=== PATIENT | female | born 1975 | race Caucasian/White ===

== ENCOUNTER 2017-01-16 19:58 | Emergency (ER) | payer BC, OTHER ==
[~2017-01-16] VITALS: Ht 162.6 cm; Wt 108.9 kg
[~2017-01-16 19:58] MED LIST: IBP800T PO; OXYC-12 PO; PREN1TAB64 PO
--- NOTE | 2017-01-16 20:39 | ED GI ---
General Chief Complaint: Abdominal/GI Problems Stated Complaint: VAG BLEED 9 WKS PG Nursing Triage Note: PT STATES SHE IS 9 1/2 WEEKS . LAST SAW DR. HARRY 01/14. DIARRHEA SINCE LAST TUESDAY. 2-3 TIMES A DAY, USUALLY AFTER FOOD INTAKE. URINATED SPECIAL EVENT ASSISTANT TO ER, CLEAR YELLOW. TONIGHT SPECIAL EVENT ASSISTANT PT HAD DIARRHEA AND STATES STOOL WAS MIXED WITH SHU , RED BLOOD. Sepsis Screen: No Definite Risk Source of Information: Patient Exam Limitations: No Limitations History of Present Illness Time Seen By Provider: 20:20 Initial Comments Here with report of bright red blood in her stool tonight. She has had several days of diarrhea 2-3 times a day. States tonight that she had a diarrhea episode and noted blood in the stool and then when she wiped she had some bright red blood on the toilet paper with a small clot. States that it is not vaginal or urethral that it's coming from the rectum. She reports that she is 9 -1/2 weeks . Denies nausea or vomiting or abdominal pain. She denies hemorrhoids. Timing/Duration: 1/2 Hour (blood in stool), 3-4 Days Severity/Quality: Mild, Other (diarrhea) Radiation: No Radiation Activities at Onset: None Modifying Factors: Worsens With Defecating Associated Symptoms: No Back Pain, No Chest Pain, No Fever/Chills, No Fatigue, No Heartburn, No Nausea/Vomiting, No Shortness of Air, No Swelling/Mass in Abdomen, No Weakness Allergies and Home Medications Allergies Coded Allergies: No Known Drug Allergies (Unverified , 11/04/10) Home Medications Vit/Fe Fumarate/Fa 1 Each Tablet, 1 EACH PO DAILY, (Reported) Review of Systems Constitutional: see HPI EENTM: No Symptoms Reported Respiratory: No Symptoms Reported Cardiovascular: No Symptoms Reported Gastrointestinal: Diarrhea, Rectal Bleeding, Denies Vomiting Genitourinary: No Symptoms Reported Musculoskeletal: no symptoms reported All Other Systems Reviewed Negative Unless Noted: Yes Past Qatvbai-Tazjvj-Ailclf Hx Patient Social History Alcohol Use: Denies Use Recreational Drug Use: No Smoking Status: Current Everyday Smoker Type Used: Cigarettes Recent Foreign Travel: No Contact w/Someone Who Travel: No Recent Infectious Disease Expo: No Surgeries HX Surgeries: Yes Surgeries: Section Respiratory Hx Respiratory Disorders: No Cardiovascular Hx Cardiac Disorders: No Neurological Hx Neurological Disorders: No Reproductive System : Yes Hx Reproductive Disorders: No Genitourinary Hx Genitourinary Disorders: No Gastrointestinal Hx Gastrointestinal Disorders: Yes Musculoskeletal Hx Musculoskeletal Disorders: No Endocrine Hx Endocrine Disorders: No HEENT HX ENT Disorders: No Psychosocial Hx Psychiatric Problems: No Blood Transfusions Hx Blood Disorders: No Reviewed Nursing Assessment Reviewed/Agree w Nursing PMH: Yes Family Medical History Significant Family History: No Pertinent Family Hx Physical Exam Vital Signs VS - Last 72 Hours, by Label 01/16/17 20:15 Temp 97.7 Pulse 107 Resp 17 B/P (MAP) 144/94 Pulse Ox 99 O2 Delivery Room Air Capillary Refill : Less Than 3 Seconds General Appearance: WD/WN, no apparent distress HEENT: PERRL/EOMI, pharynx normal Neck: full range of motion, supple Respiratory: lungs clear, normal breath sounds Cardiovascular: regular rate, rhythm, no murmur Gastrointestinal: non tender, soft Rectal: normal exam, normal rectal tone, heme negative stool, No hemorrhoids, No mass Extremities: non-tender, normal inspection Back: normal inspection, no CVA tenderness, no vertebral tenderness Neurologic/Psychiatric: alert, oriented x 3 Skin: normal color, warm/dry Progress/Results/Core Measures Results/Orders Lab Results Laboratory Tests Test 01/16/17 20:50 Range/Units White Blood Count 9.3 4.3-11.0 10^3/uL Red Blood Count 4.40 4.35-5.85 10^6/uL Hemoglobin 14.1 11.5-16.0 G/DL Hematocrit 42 35-52 % Mean Corpuscular Volume 94 80-99 FL Mean Corpuscular Hemoglobin 32 25-34 PG Mean Corpuscular Hemoglobin Concent 34 32-36 G/DL Red Cell Distribution Width 13.5 10.0-14.5 % Platelet Count 159 130-400 10^3/uL Mean Platelet Volume 11.0 H 7.4-10.4 FL Neutrophils (%) (Auto) 65 42-75 % Lymphocytes (%) (Auto) 27 12-44 % Monocytes (%) (Auto) 6 0-12 % Eosinophils (%) (Auto) 2 0-10 % Basophils (%) (Auto) 0 0-10 % Neutrophils # (Auto) 6.1 1.8-7.8 X 10^3 Lymphocytes # (Auto) 2.5 1.0-4.0 X 10^3 Monocytes # (Auto) 0.6 0.0-1.0 X 10^3 Eosinophils # (Auto) 0.2 0.0-0.3 10^3/uL Basophils # (Auto) 0.0 0.0-0.1 10^3/uL Sodium Level 138 135-145 MMOL/L Potassium Level 3.5 L 3.6-5.0 MMOL/L Chloride Level 108 H 98-107 MMOL/L Carbon Dioxide Level 19 L 21-32 MMOL/L Anion Gap 11 5-14 MMOL/L Blood Urea Nitrogen 9 7-18 MG/DL Creatinine 0.78 0.60-1.30 MG/DL Estimat Glomerular Filtration Rate > 60 BUN/Creatinine Ratio 12 Glucose Level 140 H 70-105 MG/DL Calcium Level 9.4 8.5-10.1 MG/DL Total Bilirubin 0.2 0.1-1.0 MG/DL Aspartate Amino Transf (AST/SGOT) 12 5-34 U/L Alanine Aminotransferase (ALT/SGPT) 17 0-55 U/L Alkaline Phosphatase 67 40-136 U/L Total Protein 6.5 6.4-8.2 G/DL Albumin 3.7 3.2-4.5 G/DL My Orders Orders - STEPHANY HOLLEY MD Fecal Occult Bedside (01/16/17 20:30) Cbc With Automated Diff (01/16/17 20:30) Comprehensive Metabolic Panel (01/16/17 20:30) Vital Signs/I&O Vital Sign - Last 12Hours 01/16/17 20:15 Temp 97.7 Pulse 107 Resp 17 B/P (MAP) 144/94 Pulse Ox 99 O2 Delivery Room Air Blood Pressure Mean: 111 Progress Note : Progress Note Seen and evaluated. Rectal exam and Hemoccult stool. Hemoccult negative. We will check basic labs. Monitor patient. 2105: No further stool here. CBC normal. Discharged home with return precautions. Patient verbalize understanding instructions and agreement with plan. Departure Impression Impression: Primary Impression: Rectal bleeding Additional Impression: Diarrhea Qualified Codes: R19.7 - Diarrhea, unspecified Disposition: 01 HOME, SELF-CARE Condition: Improved Departure-Patient Inst. Decision time for Depature: 21:09 Referrals: DARREN HARRY DO (PCP) Primary Care Physician Patient Instructions: Bloody Stools, Adult (DC), Diarrhea in Adolescents and Adults Add. Discharge Instructions: All discharge instructions reviewed with patient and/or family. Voiced understanding. Drink plenty of fluids. Follow-up with Dr. Harry in the morning for recheck and further evaluation. Return for worse pain, persistent bleeding, weakness, breathing problems or other concerns as needed. Copy Copies To 1: DARREN HARRY TIMOTHY D MD January 16, 2017 20:38
[2017-01-16 20:59] LABS: BASOPHILS % (AUTO) 0 % (0-10); EOSINOPHILS # (AUTO) 0.2 10^3/uL (0.0-0.3); EOSINOPHILS % (AUTO) 2 % (0-10); LYMPHOCYTES # (AUTO) 2.5 X 10^3 (1.0-4.0); LYMPHOCYTES % (AUTO) 27 % (12-44); MEAN CORPUSCULAR HEMOGLOBIN 32 PG (25-34); MEAN CORPUSCULAR HGB CONC 34 G/DL (32-36); MEAN CORPUSCULAR VOLUME 94 FL (80-99); MONOCYTES # (AUTO) 0.6 X 10^3 (0.0-1.0); MONOCYTES % (AUTO) 6 % (0-12); NEUTROPHILS # (AUTO) 6.1 X 10^3 (1.8-7.8); NEUTROPHILS % (AUTO) 65 % (42-75); PLATELET COUNT 159 10^3/uL (130-400); RED CELL DISTRIBUTION WIDTH 13.5 % (10.0-14.5); WHITE BLOOD COUNT 9.3 10^3/uL (4.3-11.0)
[2017-01-16 21:16] LABS: ALANINE AMINOTRANSFERASE 17 U/L (0-55); ALBUMIN 3.7 G/DL (3.2-4.5); ANION GAP 11 MMOL/L (5-14); ASPARTATE AMINO TRANSFERASE 12 U/L (5-34); BILIRUBIN,TOTAL 0.2 MG/DL (0.1-1.0); BLOOD UREA NITROGEN 9 MG/DL (7-18); BUN/CREATININE RATIO 12; CALCIUM 9.4 MG/DL (8.5-10.1); CARBON DIOXIDE 19 MMOL/L (21-32); CHLORIDE 108 MMOL/L (98-107); CREATININE SERUM 0.78 MG/DL (0.60-1.30); GFR ESTIMATED > 60; GLUCOSE 140 MG/DL (70-105); POTASSIUM 3.5 MMOL/L (3.6-5.0); SODIUM 138 MMOL/L (135-145); TOTAL PROTEIN 6.5 G/DL (6.4-8.2)
[2017-01-16 21:31] VITALS: BP 144/94
== END 2017-01-16 21:28 | disposition home or self-care (01) ==
LOC: EDUNIT# 19:58 → ER 20:05
DX: O99.611 Diseases of the digestive system complicating pregnancy, first trimester (principal); R19.7 Diarrhea, unspecified; K62.5 Hemorrhage of anus and rectum; O99.331 Smoking (tobacco) complicating pregnancy, first trimester; F17.210 Nicotine dependence, cigarettes, uncomplicated; Z3A.09 9 weeks gestation of pregnancy
CPT/HCPCS: 36415; 80053; 85025; 99282

== ENCOUNTER → 2017-04-04 | Outpatient (CLI) | payer BC ==
--- NOTE | 2017-04-04 12:26 | Diagnostic Imaging Report ---
INDICATION: anatomy survey. TECHNIQUE: Multiple real-time grayscale images were obtained over the gravid uterus. COMPARISON: None FINDINGS: There is a single live intrauterine with heart rate of 144 beats per minute. The cervix is closed and measures approximately 4.8 cm in length. The fetus has a variable lie. The placenta is anterior and fundal in location and there is no previa. anatomy survey was performed and the following structures were visualized and normal: Kidneys, umbilical cord insertion, cerebellum, cisterna magna, cerebral ventricles, stomach, spine, urinary bladder. Biometrical measurements are as follows: Biparietal 5.25 cm, age 22 weeks 0 days. Head circumference 18.83 cm, age 21 weeks 1 days. Abdominal circumference 16.24 cm, age 21 weeks 3 days. Femur length 3.69 cm, age 21 weeks 6 days. Sonographic estimate age: 21 weeks 5 days. Sonographic estimated date of delivery: 08/10/2017. Estimated Weight: 428 gm (+/- 63 gm). LMP percentile: 79%. heart rate: 144 beats per minute. number: 1 of 1. IMPRESSION: 1. Visualized anatomy structures are normal. The four-chamber heart, profile and three-vessel cord were not well-visualized. Consider short-term followup imaging to further assess these structures. 2. Please see above for biometric data. Dictated by: Dictated on workstation # [id number]
== END ==
LOC: RAD 09:34
PROVIDERS: ATTEND Obstetrics & Gynecology
DX: O09.522 Supervision of elderly multigravida, second trimester (principal); Z3A.21 21 weeks gestation of pregnancy
CPT/HCPCS: 76805

== ENCOUNTER → 2017-06-07 | Outpatient (CLI) | payer BC ==
--- NOTE | 2017-06-07 17:41 | Diagnostic Imaging Report ---
INDICATION: O24.414, followup heart, umbilical arteries and profile. Followup growth. TECHNIQUE: Multiple real-time grayscale images were obtained over the gravid uterus. COMPARISON: 04/04/2017. FINDINGS: heart rate is 138 per minute. The amniotic fluid index is 14 cm. The cervix is 5.3 cm in length and is closed. position is breech. The four-chamber view, and two umbilical arteries suggestive of a three-vessel cord is demonstrated. The profile is not well seen. The placenta is anterior with low lying position, at 1.4 cm above the internal os. Biometrical measurements are as follows: Biparietal 7.95 cm, age 32 weeks 0 days. Head circumference 29.02 cm, age 32 weeks 0 days. Abdominal circumference 28.00 cm, age 32 weeks 1 days. Femur length 5.8 cm, age 30 weeks 3 days. Sonographic estimate age: 31 weeks 5 days. Sonographic estimated date of delivery: 08/04/2017. Estimated Weight: 1781 gm (+/- 260 gm). LMP percentile: 87%. heart rate: 138 beats per minute. number: 1 of 1. IMPRESSION: 1. Low-lying placenta. 2. The profile is not well seen due to position. Dictated by: Dictated on workstation # [id number]
== END ==
LOC: RAD 11:52
PROVIDERS: ATTEND Obstetrics & Gynecology
DX: O24.414 Gestational diabetes mellitus in pregnancy, insulin controlled (principal); Z3A.31 31 weeks gestation of pregnancy
CPT/HCPCS: 76816

== ENCOUNTER 2017-07-18 10:46 | Outpatient (RCR) | payer BC ==
--- NOTE | 2017-06-27 19:37 | Diagnostic Imaging Report ---
INDICATION: Low-lying placenta. TECHNIQUE: Multiple real-time grayscale images were obtained over the gravid uterus. COMPARISON: 06/07/17 FINDINGS: heart rate is 155 beats per minute. The placenta is anterior. No placenta previa. position is cephalic. Biophysical profile criteria are all met with total score of 8/8. AMRIT is 10 cm. Biometrical measurements are as follows: Biparietal 8.46 cm, age 34 weeks 1 days. Head circumference 30.94 cm, age 34 weeks 4 days. Abdominal circumference 31.10 cm, age 35 weeks 1 days. Femur length 6.59 cm, age 34 weeks 0 days. Sonographic estimate age: 34 weeks 4 days. Sonographic estimated date of delivery: 08-04-17. Estimated Weight: 2468 gm (+/- 360 gm). LMP percentile: 89%. heart rate: 155 beats per minute. number: 1 of 1. IMPRESSION: The placenta is anterior and is away from lower uterine segment. No placenta previa. Normal biophysical profile. Dictated by: Dictated on workstation # [id number]
[2017-08-03] MEDS ORDERED: PNV1TABL81 PO (09:41)
[2017-08-03] MEDS ORDERED: METF1000 PO (09:41)
[2017-08-11] MEDS ORDERED: DOCU100C37 PO (10:52)
[2017-08-11] MEDS ORDERED: Hydrocodone Bit/Acetaminophen PO (10:52)
[2017-08-11] MEDS ORDERED: IBUP-1773 PO (10:52)
== END 2017-09-25 | disposition home or self-care (01) ==
LOC: RAD 10:46
PROVIDERS: ATTEND Obstetrics & Gynecology
DX: O44.43 Low lying placenta NOS or without hemorrhage, third trimester (principal); O09.523 Supervision of elderly multigravida, third trimester; O24.414 Gestational diabetes mellitus in pregnancy, insulin controlled; Z3A.34 34 weeks gestation of pregnancy
CPT/HCPCS: 76805; 76819

== ENCOUNTER 2017-08-01 09:48 | Outpatient (RCR) | payer BC ==
--- NOTE | 2017-07-18 14:29 | Diagnostic Imaging Report ---
INDICATION: Gestational diabetes. TECHNIQUE: Multiple real-time grayscale images were obtained over the gravid uterus. COMPARISON: 06/27/2017 FINDINGS: heart rate is 147 beats per minute. The AMRIT is 13.9 cm. The placenta is anterior. No placenta previa. Biophysical profile parameters are evaluated with no abnormality and total score is 8 out of 8. position is cephalic. The cervix is obscured by the head. Biometrical measurements are as follows: Biparietal 8.6 cm, age 24 weeks 5 days. Head circumference 31.88 cm, age 36 weeks 0 days. Abdominal circumference 33.02 cm, age 37 weeks 0 days. Femur length 7.07 cm, age 36 weeks 2 days. Sonographic estimate age: 36 weeks 0 days. Sonographic estimated date of delivery: 08/15/2017. Estimated Weight: 2924 gm (+/- 427 gm). LMP percentile: 66%. heart rate: 147 beats per minute. number: 1 of 1. IMPRESSION: Total biophysical profile score is 8 out of 8. Dictated by: Dictated on workstation # [id number]
--- NOTE | 2017-08-01 10:50 | Diagnostic Imaging Report ---
INDICATION: Gestational diabetes. TECHNIQUE: Multiple real-time grayscale images were obtained over the gravid uterus. COMPARISON: None. FINDINGS: heart rate is 163 beats per minute. The amniotic fluid index is 11.5 cm. The placenta is anterior. No placenta previa. position cephalic. Biophysical profile parameters are all met with total score of 8 out of 8. Biometrical measurements are as follows: Biparietal 8.9 cm, age 36 weeks 1 days, at 25th percentile. Head circumference 32.4 cm, age 36 weeks 5 days, at 8th percentile. Abdominal circumference 33.9 cm, age 37 weeks 6 days, at 64th percentile. Femur length 7.2 cm, age 37 weeks 0 days, at 29th percentile. Current gestational age based on assigned STEPH of 08/16/2017 is 37 weeks and 6 days. Sonographic estimate age: 37 weeks 0 days. Sonographic estimated date of delivery: 08/22/17. Estimated Weight: 3155 gm (+/- 461 gm). LMP percentile: 45%. heart rate: 163 beats per minute. number: 1 of 1. IMPRESSION: Total biophysical profile score is 8 out of 8. Dictated by: Dictated on workstation # [id number]
[2017-08-03] MEDS ORDERED: PNV1TABL81 PO (09:41)
[2017-08-03] MEDS ORDERED: METF1000 PO (09:41)
[2017-08-11] MEDS ORDERED: IBUP-1773 PO (10:52)
[2017-08-11] MEDS ORDERED: DOCU100C37 PO (10:52)
[2017-08-11] MEDS ORDERED: Hydrocodone Bit/Acetaminophen PO (10:52)
== END 2017-09-25 | disposition home or self-care (01) ==
LOC: RAD 09:48
PROVIDERS: ATTEND Obstetrics & Gynecology
DX: O24.414 Gestational diabetes mellitus in pregnancy, insulin controlled (principal); O09.523 Supervision of elderly multigravida, third trimester
CPT/HCPCS: 76805; 76819

== ENCOUNTER 2017-08-03 09:26 | Outpatient (CLI) | payer BC ==
[~2017-08-03] VITALS: Ht 162.6 cm; Wt 119.7 kg
[2017-08-03] MEDS ORDERED: METF1000 PO (09:41)
[2017-08-03] MEDS ORDERED: PNV1TABL81 PO (09:41)
== END 2017-08-03 09:57 ==
LOC: PREOP 09:26
PROVIDERS: ATTEND Obstetrics & Gynecology
DX: Z01.818 Encounter for other preprocedural examination (principal); O34.219 Maternal care for unspecified type scar from previous cesarean delivery

== ENCOUNTER 2017-08-08 17:15 | Inpatient (IN) | payer BC ==
[~2017-08-08] VITALS: Ht 162.6 cm; Wt 119.3 kg
[2017-08-08] VITALS (13 sets, daily range): BP systolic 115–173; BP diastolic 64–94
[~2017-08-08 17:15] MED LIST changes: +METF1000 PO; +PNV1TABL81 PO
[2017-08-08] MEDS ORDERED: INFLUENZA TRIvalent 2017-2018 0.5 ML/45 MCG SYR IM ONE (17:45)
[2017-08-08] MEDS ORDERED: LACTATED RINGERS 1,000 ML IV ONE (18:15)
[2017-08-08] MEDS ORDERED: TERBUTALINE INJ 1 MG/ML (BRETHINE) AMP SC ONE ×2 (18:45→20:45)
[2017-08-08] MEDS ORDERED: morphine INJ 10 MG/ML 1ML (SYR OR VIAL) IVP ONE (18:45)
[2017-08-08] MEDS ORDERED: METOCLOPRAMIDE INJ 10 MG/2 ML (REGLAN) ONE (20:13)
[2017-08-08] MEDS ORDERED: CITRIC ACID/SOB CIT (BICITRA) 30 ML UDC ONE (20:13)
[2017-08-08] MEDS ORDERED: ceFAZolin 2 GM/50 ML NS 50 ML ONE (20:14)
[2017-08-08] MEDS ORDERED: FAMOTIDINE 20MG/2ML IV (PEPCID) ONE (20:14)
[2017-08-08] MEDS ORDERED: ceFAZolin 2 GM/50 ML NS 50 ML IV ONE (20:15)
[2017-08-08 20:40] LABS: BASOPHILS % (AUTO) 0 % (0-10); EOSINOPHILS % (AUTO) 0 % (0-10); LYMPHOCYTES # (AUTO) 1.5 X 10^3 (1.0-4.0); LYMPHOCYTES % (AUTO) 10 % (12-44); MEAN CORPUSCULAR HEMOGLOBIN 30 PG (25-34); MEAN CORPUSCULAR HGB CONC 34 G/DL (32-36); MEAN CORPUSCULAR VOLUME 89 FL (80-99); MEAN PLATELET VOLUME 12.5 FL (7.4-10.4); MONOCYTES # (AUTO) 0.6 X 10^3 (0.0-1.0); MONOCYTES % (AUTO) 4 % (0-12); NEUTROPHILS # (AUTO) 13.3 X 10^3 (1.8-7.8); NEUTROPHILS % (AUTO) 87 % (42-75); PLATELET COUNT 119 10^3/uL (130-400); RED CELL DISTRIBUTION WIDTH 14.3 % (10.0-14.5); WHITE BLOOD COUNT 15.4 10^3/uL (4.3-11.0)
[2017-08-08] MEDS ORDERED: METOCLOPRAMIDE INJ 10 MG/2 ML (REGLAN) IV ONE (20:45)
[2017-08-08] MEDS ORDERED: CITRIC ACID/SOB CIT (BICITRA) 30 ML UDC PO ONE (20:45)
[2017-08-08] MEDS ORDERED: FAMOTIDINE 20MG/2ML IV (PEPCID) IV ONE (20:45)
--- NOTE | 2017-08-08 20:49 | Progress Note-Pre Operative ---
Pre-Operative Progress Note H&P Reviewed The H&P was reviewed, patient examined and no changes noted. Patient is scheduled for repeat section at 39 weeks tomorrow. However , she presented today with contractions and is in labor. Plan to progress with repeat section at this time. Ancef 2 grams given. BS 104. Date Seen by Provider: Aug 08, 2017 Time Seen by Provider: 20:46 Date H&P Reviewed: Aug 08, 2017 Time H&P Reviewed: 20:15 Pre-Operative Diagnosis: Previous section, labor, GDM A2, AMA, GBS +, gest thrombocytopenia DARREN HARRY DO Aug 08, 2017 20:49
[2017-08-08] MEDS ORDERED: ONDANSETRON 4 MG/2 ML (SDV) Z0FRAN ONE (20:50)
[2017-08-08] MEDS ORDERED: OXYTOCIN/NORMAL SALINE 1,000 ML IV ONE ×2 (20:50→20:57)
[2017-08-08] MEDS ORDERED: OXYTOCIN/NORMAL SALINE 500 ML IV SCH (21:02)
[2017-08-08] MEDS ORDERED: LACTATED RINGERS 1,000 ML IV SCH (21:15)
[2017-08-08] MEDS ORDERED: TETANUS,DIPTH,PERTUSS P/F (BOOSTRIX) 0.5 ML VIAL IM SCH (21:15)
[2017-08-08] MEDS ORDERED: HYDROmorphone (DILAUDID) 2 MG/ML VIAL IVP PRN (21:15)
[2017-08-08] MEDS ORDERED: MEASLES,MUMPS,RUBELLA 1 EA INJ SC SCH (21:15)
[2017-08-08] MEDS ORDERED: PHENYLEPHRINE 100 MCG/ML 10 ML (ANESTHESIA) SYR ONE (21:22)
[2017-08-08] MEDS ORDERED: fentaNYL INJECTION 100 MCG/2 ML AMP ONE (21:22)
[2017-08-08] MEDS: KETOROLAC 30 MG/ML VIAL IVP SCH (22:00)
--- NOTE | 2017-08-08 22:03 | Cesarean Section Operative ---
Procedure Procedure Note Pre-operative Diagnosis: Fatoumata Meyers is a 42 /Para 2 / 1, Gestational Age 38 6/7 weeks, in labor, GDM A2, AMA, GBS +, gestational thrombocytopenia Post-operative Diagnosis: same, thin meconium Procedure: Repeat low transverse section Physician: DARREN HARRY Estimated blood loss:200 mL Disposition: stable Findings: Viable male , Apgars 5/9/9, weight 7#1oz, intact placenta, 3vc, normal appearing uterus, tubes, and ovaries. Nuchal cord delivered through. Indications:Fatoumata Meyers is a42 /Para 2 / 1,Gestational Age 38 6/ 7 weeks, in labor, GDM A2, AMA, GBS +, gestational thrombocytopenia Patient presented in labor. Was scheduled for repeat section tomorrow. She presented with contractions and initially did not make cervical change. She was given terbutaline x 1 and, initially, this slowed contractions. but these picked up again and she began to make cervical change. The decision was made to proceed with repeat section. well being is good. No decelerations noted. Fingerstick blood sugar 104, plts 117, 000. Procedure Details: The patient was seen in pre-op and the procedure was discussed with the patient in full, including the risks, benefits, and alternatives. All questions were answered. The patient was taken to the operating room and a time out was performed, verifying patient and procedure. After spinal anesthesia was placed by our anesthesia colleagues, the patient was placed in the dorsal supine with leftward tilt for uterine displacement.~ Her abdomen was then prepped and draped in the typical sterile fashion. A Pfannenstiel skin incision was made using a scalpel and carried down through the underlying fascia. The fascia was incised in the midline and tented up using Sheldon clamps. On both the inferior and superior fascia side the rectus muscle was dissected off bluntly and sharply using Yost scissors. The peritoneum was identified and entered bluntly in the midline. This was then stretched laterally using manual strength. After entering the abdominal cavity and noted there were filmy omental adhesions (these were taken down later), an extra large Kwabena retractor was placed and the lower uterine segment was visualized. A scalpel was utilized to make a low transverse uterine incision. The lower uterine segment was not thinned. Amniotomy was performed with an Allis clamp with return of thin meconium fluid. The infant's head was grasped and brought to the level of the incision. And with assistance of the silastic suction, and Fundal pressure, the was delivered without difficulty. Baby was noted to be not engaged and OP in presentation. There was a nuchal cord that was delivered through. Mouth and nares were suctioned with bulb suction. After the umbilical cord was clamped and cut, the was handed off to the pediatric staff. A sample of cord blood was then obtained. The placenta was delivered intact via uterine massage. The uterus was cleared of all clots and debris. The uterine incision was closed using 0 Vicryl in a running locked fashion. A second imbricated layer was placed using 0 Vicryl in a running fashion as well. The bilateral tubes and ovaries appeared normal, however, there were filmy adhesions to the left tube that were cauterized. There were filmy omental adhesions to the anterior uterus that were cauterized. Also thin omental adhesions to the anterior fascia also cauterized. The uterus abdominal gutters were cleared of all clots and debris. A final check of the uterine incision showed it to be hemostatic. The peritoneum was closed using 3-0 Vicryl in a running fashion. The rectus muscles brought together in the midline with a loose figure of eight stitch of 3-0 Vicryl. The fascia was closed with 0 Vicryl in a running fashion. The subcutaneous space was hemostatic , and irrigated. The subcutaneous space was closed with 3-0 Plain with a running stitch. The incision was undermined with the cautery to provide a better skin closure. Hemostasis was assured. The skin was then closed using 4- 0 Monocryl in a running subcuticular fashion. The skin edges were reapproximated together and were hemostatic. A pressure dressing was applied. All sponge, lap and needle counts were correct at the end of the procedure per nursing. Vitals - Labs Vital Signs - I&O Vital Signs Date Time Temp Pulse Resp B/P (MAP) Pulse Ox O2 Delivery O2 Flow Rate FiO2 08/08/17 19:00 104 20 151/67 (95) 08/08/17 18:30 96 20 173/77 (109) 08/08/17 17:50 88 20 160/75 (103) 08/08/17 17:30 90 20 173/74 (107) 08/08/17 17:29 98.8 99 20 158/77 (104) Labs Laboratory Tests 08/08/17 20:31: White Blood Count 15.4H, Red Blood Count 4.40, Hemoglobin 13.3, Hematocrit 39, Mean Corpuscular Volume 89, Mean Corpuscular Hemoglobin 30, Mean Corpuscular Hemoglobin Concent 34, Red Cell Distribution Width 14.3, Platelet Count 119L, Mean Platelet Volume 12.5H, Neutrophils (%) (Auto) 87H, Lymphocytes (%) (Auto) 10L, Monocytes (%) (Auto) 4, Eosinophils (%) (Auto) 0, Basophils (%) (Auto) 0, Neutrophils # (Auto) 13.3H, Lymphocytes # (Auto) 1.5, Monocytes # (Auto) 0.6, Eosinophils # (Auto) 0.0, Basophils # (Auto) 0.0 08/08/17 20:42: Glucometer 103 DARREN HARRY DO Aug 08, 2017 22:03
[2017-08-08] MEDS ORDERED: diphenhydrAMINE 50 MG/ML INJ (BENADRYL) IV PRN (22:15)
[2017-08-08] MEDS ORDERED: ONDANSETRON 4 MG/2 ML (SDV) Z0FRAN IVP PRN (22:15)
[2017-08-08] MEDS ORDERED: morphine INJ 10 MG/ML 1ML (SYR OR VIAL) IVP PRN (22:15)
[2017-08-08] MEDS ORDERED: ONDANSETRON 4 MG/2 ML (SDV) Z0FRAN IV PRN (22:15)
[2017-08-08] MEDS ORDERED: NALOXONE 0.4 MG/ML 1 ML (NARCAN) VIAL IV PRN ×2 (22:15)
[2017-08-08] MEDS ORDERED: MEPERIDINE (DEMEROL) INJ 50 MG/ML IVP PRN (22:15)
[2017-08-08] MEDS ORDERED: METOCLOPRAMIDE INJ 10 MG/2 ML (REGLAN) IV PRN (22:15)
[2017-08-08 22:21] LABS: BILIRUBIN,URINE NEGATIVE (NEGATIVE); KETONES,URINE 3+ (NEGATIVE); LEUKOCYTE ESTERASE ,URINE 1+ (NEGATIVE); NITRITE,URINE NEGATIVE (NEGATIVE); PH,URINE 5 (5-9); PROTEIN,URINE 1+ (NEGATIVE); UROBILINOGEN,URINE NORMAL (NORMAL)
[2017-08-09] MEDS: HYDROcodone/APAP 5 MG/325 MG (LORTAB) TAB PO PRN ×3 (00:58→21:19)
[2017-08-09] MEDS: KETOROLAC 30 MG/ML VIAL IVP SCH (04:55)
[2017-08-09 05:00] VITALS: BP 126/72
[2017-08-09 05:21] LABS: BASOPHILS % (AUTO) 0 % (0-10); EOSINOPHILS % (AUTO) 0 % (0-10); LYMPHOCYTES # (AUTO) 1.9 X 10^3 (1.0-4.0); LYMPHOCYTES % (AUTO) 12 % (12-44); MEAN CORPUSCULAR HEMOGLOBIN 30 PG (25-34); MEAN CORPUSCULAR HGB CONC 33 G/DL (32-36); MEAN CORPUSCULAR VOLUME 91 FL (80-99); MEAN PLATELET VOLUME 12.5 FL (7.4-10.4); MONOCYTES # (AUTO) 0.8 X 10^3 (0.0-1.0); MONOCYTES % (AUTO) 5 % (0-12); NEUTROPHILS # (AUTO) 13.6 X 10^3 (1.8-7.8); NEUTROPHILS % (AUTO) 83 % (42-75); PLATELET COUNT 99 10^3/uL (130-400); RED BLOOD COUNT 3.69 10^6/uL (4.35-5.85); WHITE BLOOD COUNT 16.4 10^3/uL (4.3-11.0)
[2017-08-09 08:35] VITALS: BP 126/74
[2017-08-09] MEDS: DOCUSATE SODIUM 100 MG (COLACE) CAP PO SCH ×2 (08:36→20:02)
--- NOTE | 2017-08-09 08:36 | Postpartum Progress Note ---
Post Op Post-operative Day #1 s/p RLTCS, GDM A2, AMA, gest thrombocytopenia Subjective: Patient is without complaints. Ambulating, voiding after cartwright removed. Tolerating a regular diet without nausea or vomiting. Normal lochia. Pain is well controlled with oral pain medications. Passing flatus. breast feeding Objective: Laboratory Tests Test 08/08/17 20:31 08/08/17 20:42 08/08/17 21:14 08/09/17 05:15 Range/Units White Blood Count 15.4 H 16.4 H 4.3-11.0 10^3/uL Red Blood Count 4.40 3.69 L 4.35-5.85 10^6/uL Hemoglobin 13.3 11.2 L 11.5-16.0 G/DL Hematocrit 39 34 L 35-52 % Mean Corpuscular Volume 89 91 80-99 FL Mean Corpuscular Hemoglobin 30 30 25-34 PG Mean Corpuscular Hemoglobin Concent 34 33 32-36 G/DL Red Cell Distribution Width 14.3 14.0 10.0-14.5 % Platelet Count 119 L 99 L 130-400 10^3/uL Mean Platelet Volume 12.5 H 12.5 H 7.4-10.4 FL Neutrophils (%) (Auto) 87 H 83 H 42-75 % Lymphocytes (%) (Auto) 10 L 12 12-44 % Monocytes (%) (Auto) 4 5 0-12 % Eosinophils (%) (Auto) 0 0 0-10 % Basophils (%) (Auto) 0 0 0-10 % Neutrophils # (Auto) 13.3 H 13.6 H 1.8-7.8 X 10^3 Lymphocytes # (Auto) 1.5 1.9 1.0-4.0 X 10^3 Monocytes # (Auto) 0.6 0.8 0.0-1.0 X 10^3 Eosinophils # (Auto) 0.0 0.0 0.0-0.3 10^3/uL Basophils # (Auto) 0.0 0.0 0.0-0.1 10^3/uL Glucometer 103 70-110 MG/DL Urine Color JARRED H Urine Clarity CLEAR Urine pH 5 5-9 Urine Specific [place] 1.025 H 1.016-1.022 Urine Protein 1+ H NEGATIVE Urine Glucose (UA) NEGATIVE NEGATIVE Urine Ketones 3+ H NEGATIVE Urine Nitrite NEGATIVE NEGATIVE Urine Bilirubin NEGATIVE NEGATIVE Urine Urobilinogen NORMAL NORMAL MG/DL Urine Leukocyte Esterase 1+ H NEGATIVE Urine RBC (Auto) NEGATIVE NEGATIVE Urine RBC NONE /HPF Urine WBC 2-5 /HPF Urine Squamous Epithelial Cells 5-10 /HPF Urine Crystals NONE /LPF Urine Bacteria NONE /HPF Urine Casts NONE /LPF Urine Mucus MODERATE H /LPF Urine Culture Indicated NO Physical Exam: General - Alert and oriented, no apparent distress Abdomen - Soft, appropriately tender to palpation, non-distended, fundus firm at umbilicus Incision - clean, dry and intact; no erythema or induration, no drainage Extremities - no edema, negative Mimi's bilaterally Assessment: 1. post-operative day # 1, status post RLTCS. Recovering well, hemodynamically stable 2. Acute blood loss anemia 3. GDM A2 4. gestational thrombocytopenia - trending downward, will monitor Plan: Routine post-operative care. Encourage breast feeding. Encourage ambulation. VTE prophylaxis: SCDs. Ferrous sulfate supplementation. Plan for discharge Tuesday or Vitals - Labs Vital Signs - I&O Vital Signs Date Time Temp Pulse Resp B/P (MAP) Pulse Ox O2 Delivery O2 Flow Rate FiO2 08/09/17 05:00 98.1 90 18 126/72 (90) 97 Room Air 08/08/17 23:25 98.9 106 18 115/64 (81) 96 Room Air 08/08/17 20:52 104 20 131/66 (87) Room Air 08/08/17 20:50 97.8 08/08/17 20:33 107 20 163/81 (108) Room Air 08/08/17 20:17 103 20 155/71 (99) Room Air 08/08/17 20:00 98.5 08/08/17 19:49 100 20 128/94 (105) Room Air 08/08/17 19:31 110 20 151/75 (100) Room Air 08/08/17 19:17 115 20 140/70 (93) Room Air 08/08/17 19:02 107 20 155/68 (97) Room Air 08/08/17 19:00 104 20 151/67 (95) 08/08/17 18:30 96 20 173/77 (109) 08/08/17 17:50 88 20 160/75 (103) 08/08/17 17:30 90 20 173/74 (107) 08/08/17 17:29 98.8 99 20 158/77 (104) I & O 08/09/17 07:00 Intake Total 1000 ml Output Total 460 ml Balance 540 ml Labs Laboratory Tests 08/08/17 20:31: White Blood Count 15.4H, Red Blood Count 4.40, Hemoglobin 13.3, Hematocrit 39, Mean Corpuscular Volume 89, Mean Corpuscular Hemoglobin 30, Mean Corpuscular Hemoglobin Concent 34, Red Cell Distribution Width 14.3, Platelet Count 119L, Mean Platelet Volume 12.5H, Neutrophils (%) (Auto) 87H, Lymphocytes (%) (Auto) 10L, Monocytes (%) (Auto) 4, Eosinophils (%) (Auto) 0, Basophils (%) (Auto) 0, Neutrophils # (Auto) 13.3H, Lymphocytes # (Auto) 1.5, Monocytes # (Auto) 0.6, Eosinophils # (Auto) 0.0, Basophils # (Auto) 0.0 08/08/17 20:42: Glucometer 103 08/08/17 21:14: Urine Color AMBERH, Urine Clarity CLEAR, Urine pH 5, Urine Specific [place] 1.025H, Urine Protein 1+H, Urine Glucose (UA) NEGATIVE, Urine Ketones 3+H, Urine Nitrite NEGATIVE, Urine Bilirubin NEGATIVE, Urine Urobilinogen NORMAL, Urine Leukocyte Esterase 1+H, Urine RBC (Auto) NEGATIVE, Urine RBC NONE, Urine WBC 2-5, Urine Squamous Epithelial Cells 5-10, Urine Crystals NONE, Urine Bacteria NONE, Urine Casts NONE, Urine Mucus MODERATEH, Urine Culture Indicated NO 08/09/17 05:15: White Blood Count 16.4H, Red Blood Count 3.69L, Hemoglobin 11.2L, Hematocrit 34L , Mean Corpuscular Volume 91, Mean Corpuscular Hemoglobin 30, Mean Corpuscular Hemoglobin Concent 33, Red Cell Distribution Width 14.0, Platelet Count 99L, Mean Platelet Volume 12.5H, Neutrophils (%) (Auto) 83H, Lymphocytes (%) (Auto) 12, Monocytes (%) (Auto) 5, Eosinophils (%) (Auto) 0, Basophils (%) (Auto) 0, Neutrophils # (Auto) 13.6H, Lymphocytes # (Auto) 1.9, Monocytes # (Auto) 0.8, Eosinophils # (Auto) 0.0, Basophils # (Auto) 0.0 DARREN HARRY DO Aug 09, 2017 08:36
[2017-08-09] MEDS: metFORMIN 500 MG (GLUCOPHAGE) TAB PO SCH ×2 (08:58→20:02)
--- NOTE | 2017-08-09 12:02 | Anesthesia-Regional Post-Op ---
Regional Patient Condition Mental Status: Alert, Oriented x3 Circulation: Same as Pre-Op Headache: Absent Sensation: Full Recovery Motor Block: Absent Post Op Complications Complications None Follow Up Care/Instructions Patient Instructions None needed. Anesthesia/Patient Condition Patient is doing well, no complaints, stable vital signs, no apparent adverse anesthesia problems. No complications reported per nursing. BENNETT BROWN CRNA Aug 09, 2017 12:02
[2017-08-09] MEDS: IBUPROFEN 600 MG (MOTRIN) TAB PO SCH ×2 (12:16→18:12)
[2017-08-09 13:20] VITALS: BP 142/78
[2017-08-09 18:09] VITALS: BP 139/77
[2017-08-09 19:45] VITALS: BP 125/72
[2017-08-10] MEDS: IBUPROFEN 600 MG (MOTRIN) TAB PO SCH ×4 (00:55→17:36)
[2017-08-10 05:45] VITALS: BP 106/62
[2017-08-10 07:19] LABS: BASOPHILS % (AUTO) 0 % (0-10); EOSINOPHILS # (AUTO) 0.1 10^3/uL (0.0-0.3); EOSINOPHILS % (AUTO) 1 % (0-10); LYMPHOCYTES # (AUTO) 1.8 X 10^3 (1.0-4.0); LYMPHOCYTES % (AUTO) 14 % (12-44); MEAN CORPUSCULAR HEMOGLOBIN 31 PG (25-34); MEAN CORPUSCULAR HGB CONC 33 G/DL (32-36); MEAN CORPUSCULAR VOLUME 93 FL (80-99); MEAN PLATELET VOLUME 12.6 FL (7.4-10.4); MONOCYTES # (AUTO) 0.5 X 10^3 (0.0-1.0); MONOCYTES % (AUTO) 4 % (0-12); NEUTROPHILS # (AUTO) 9.9 X 10^3 (1.8-7.8); NEUTROPHILS % (AUTO) 80 % (42-75); PLATELET COUNT 109 10^3/uL (130-400); RED BLOOD COUNT 3.52 10^6/uL (4.35-5.85); RED CELL DISTRIBUTION WIDTH 14.6 % (10.0-14.5); WHITE BLOOD COUNT 12.4 10^3/uL (4.3-11.0)
[2017-08-10] MEDS: metFORMIN 500 MG (GLUCOPHAGE) TAB PO SCH ×2 (08:58→17:36)
[2017-08-10] MEDS: PRENATAL VITAMIN 1 EA TAB PO SCH (08:58)
[2017-08-10] MEDS: DOCUSATE SODIUM 100 MG (COLACE) CAP PO SCH ×2 (08:58→22:40)
[2017-08-10 09:00] VITALS: BP 146/79
[2017-08-10] MEDS: HYDROcodone/APAP 5 MG/325 MG (LORTAB) TAB PO PRN ×2 (11:58→22:40)
[2017-08-10 15:30] VITALS: BP 126/72
[2017-08-10 19:20] VITALS: BP 136/78
[2017-08-11 00:25] VITALS: BP 130/75
[2017-08-11] MEDS: IBUPROFEN 600 MG (MOTRIN) TAB PO SCH ×3 (00:27→11:35)
[2017-08-11 08:50] VITALS: BP 138/87
[2017-08-11] MEDS: PRENATAL VITAMIN 1 EA TAB PO SCH (08:56)
[2017-08-11] MEDS: metFORMIN 500 MG (GLUCOPHAGE) TAB PO SCH (08:57)
[2017-08-11] MEDS: DOCUSATE SODIUM 100 MG (COLACE) CAP PO SCH (08:57)
--- NOTE | 2017-08-11 10:49 | Progress Note-Standard ---
Standard Progress Note Progress Notes/Assess & Plan Date Seen by Provider: Aug 10, 2017 Time Seen by Provider: 12:30 Progress/Assessment & Plan POD #2 s/p RLTCS Doing well but baby not feeding well Tongue tied. Will keep baby until tomorrow. Mom with abdominal pain but tolerable. VSS FSBS this am 103 Plts improving 109,000 today Plan DC tomorrow. DARREN HARRY DO Aug 11, 2017 10:49 am
--- NOTE | 2017-08-11 10:51 | Postpartum Progress Note ---
Post Op Post-operative Day #3 s/p RLTCS Subjective: Patient is without complaints. Ambulating, voiding after cartwright removed. Tolerating a regular diet without nausea or vomiting. Normal lochia. Pain is well controlled with oral pain medications. Passing flatus. breast feeding Ambulating Objective: Vital Sign - Last 12Hours 08/11/17 08/11/17 00:25 08:50 Temp 98.0 97.7 Pulse 83 73 Resp 18 18 B/P (MAP) 130/75 (93) 138/87 (104) Pulse Ox 96 97 O2 Delivery Room Air Physical Exam: General - Alert and oriented, no apparent distress Abdomen - Soft, appropriately tender to palpation, non-distended, fundus firm at umbilicus Incision - clean, dry and intact; no erythema or induration, no drainage Extremities - no edema, negative Mimi's bilaterally Assessment: 1. post-operative day # 3, status post RLTCS. Recovering well, hemodynamically stable 2. GDM A2 - stable continue Metformin 3. gestational thrombocytopenia 4. Acute blood loss anemia Plan: Routine post-operative care. Encourage breast feeding. Encourage ambulation. VTE prophylaxis: SCDs. Ferrous sulfate supplementation. Plan for discharge today Vitals - Labs Vital Signs - I&O Vital Signs Date Time Temp Pulse Resp B/P (MAP) Pulse Ox O2 Delivery O2 Flow Rate FiO2 08/11/17 08:50 97.7 73 18 138/87 (104) 97 Room Air 08/11/17 00:25 98.0 83 18 130/75 (93) 96 08/10/17 19:20 98.2 78 18 136/78 (97) 99 08/10/17 15:30 97.6 74 20 126/72 (90) 95 I & O 08/11/17 07:00 Intake Total 600 ml Output Total 850 ml Balance -250 ml Labs Microbiology 08/08/17 Urine Culture - Final, Complete NO GROWTH DARREN HARRY DO Aug 11, 2017 10:51 am
[2017-08-11] MEDS ORDERED: DOCU100C37 PO (10:52)
[2017-08-11] MEDS ORDERED: IBUP-1773 PO (10:52)
[2017-08-11] MEDS ORDERED: Hydrocodone Bit/Acetaminophen PO (10:52)
--- NOTE | 2017-08-11 10:55 | Discharge Inst-Women's Service ---
Discharge Inst-Women's Serv Depart Medication/Instructions New, Converted or Re-Newed RX: RX on Chart Final Diagnosis previous section in labor GDM A2 Gestational thrombocytopenia Group B Strep positive Advanced maternal age Consults/Follow Up Additional Follow Up: Yes (1 week with Kennedi/Fenech, incision check. 6 weeks for pp exam. ) Activity Activity: Activity as Tolerated (no lifting over 25 lbs, nothing in the vagina , no driving for 1 week) Driving Instructions: No Driving for 1 Week NO SMOKING: NO SMOKING Nothing Inside Vagina: No Douching, No [place], No Tampons Diet Discharge Diet: No Restrictions Symptoms to Report to : Bleeding Excessive, Pain Increased, Fever Over 101 Degrees F, Vaginal Bleeding Increase, Cramps in Feet or Legs, Vaginal Discharge Foul, Shortness of Breath For Any Problems or Questions: Contact Your Physician Skin/Wound Care Infection Signs and Symptoms: Increased Redness, Foul Odor of Wound, Increased Drainage, Skin Itchy or Has a Rash, Increased Swelling, Temperature Above 101 F Operative Area Clean and Dry: Keep Incision Clean/Dry Stitches/Elissa/Dermabond: Dermabond Bathing Instructions: DARREN Puente DO Aug 11, 2017 10:54 am
== END 2017-08-11 12:15 | disposition home or self-care (01) | DRG 765 ==
LOC: LDRP 17:15 → WSo 17:15 → LDRP 20:07
PROVIDERS: ADMIT Obstetrics & Gynecology; ATTEND Obstetrics & Gynecology
PROC: 10D00Z1 Extraction of Products of Conception, Low, Open Approach (ICD-10-PCS; principal; 2017-08-08 21:21)
DX: O99.824 Streptococcus B carrier state complicating childbirth (principal); O99.12 Other diseases of the blood and blood-forming organs and certain disorders involving the immune mechanism complicating childbirth; D69.6 Thrombocytopenia, unspecified; Z3A.38 38 weeks gestation of pregnancy; O34.211 Maternal care for low transverse scar from previous cesarean delivery; O24.425 Gestational diabetes mellitus in childbirth, controlled by oral hypoglycemic drugs; O90.81 Anemia of the puerperium; D62 Acute posthemorrhagic anemia; Z79.84 Long term (current) use of oral hypoglycemic drugs; Z37.0 Single live birth
CPT/HCPCS: 36415; 81000; 82962; 85025; 86850; 86900; 86901; 87088; 94664; 99212

== ENCOUNTER → 2017-08-12 | Emergency (ER) | payer BC ==
[~2017-08-12] VITALS: Ht 162.6 cm; Wt 113.4 kg
[~2017-08-12] MED LIST changes: +DOCU100C37 PO; +Hydrocodone Bit/Acetaminophen PO; +IBUP-1773 PO
--- OUTSIDE RECORDS SUMMARY | 2017-08-12 18:45 | XMS REPORT | Continuity of Care Document ---
Author Author [facility] Organization [facility] Address Unknown Phone Unavailable Allergies Active Description Code Type Severity Reaction Onset Reported/Identified Relationship to Patient Clinical Status Yes No Known Drug Allergies [id number] Drug Allergy Unknown N/A 08/03/2017 Medications There is no data. Problems Date Dx Coded Attending Type Code Diagnosis Diagnosed By 11/08/2010 Ot 642.31 11/08/2010 Ot 648.91 11/08/2010 Ot 659.71 11/08/2010 Ot V02.51 11/08/2010 Ot V06.1 11/08/2010 Ot V27.0 11/12/2015 CALVIN AVILA Ot 611.79 01/16/2017 CALVIN AVILA Ot 611.79 SYMPTOMS IN BREAST NEC 01/16/2017 STEPHANY HOLLEY MD Ot F17.210 NICOTINE DEPENDENCE, CIGARETTES, UNCOMPL 01/16/2017 STEPHANY HOLLEY MD Ot K62.5 HEMORRHAGE OF ANUS AND RECTUM 01/16/2017 STEPHANY HOLLEY MD Ot O99.331 SMOKING (TOBACCO) COMPLICATING 01/16/2017 STEPHANY HOLLEY MD Ot O99.611 DISEASES OF THE DGSTV SYS COMP 01/16/2017 STEPHANY HOLLEY MD Ot R19.7 DIARRHEA, UNSPECIFIED 01/16/2017 STEPHANY HOLLEY MD Ot Z3A.09 9 WEEKS GESTATION OF 01/16/2017 CALVIN AVILA Ot 611.79 SYMPTOMS IN BREAST NEC 04/05/2017 DARREN HARRY DO Ot O09.522 SUPERVISION OF ELDERLY MULTIGRAVIDA, SEC 04/05/2017 DARREN HARRY DO Ot Z3A.21 21 WEEKS GESTATION OF 04/25/2017 DARREN HARRY DO Ot O09.522 SUPERVISION OF ELDERLY MULTIGRAVIDA, SEC 04/25/2017 HARRY DO, DARREN C Ot Z3A.21 21 WEEKS GESTATION OF 06/07/2017 DARREN HARRY DO Ot O09.522 SUPERVISION OF ELDERLY MULTIGRAVIDA, [facility] 06/07/2017 DARREN HARRY DO Ot Z3A.21 21 WEEKS GESTATION OF 06/23/2017 DARREN HARRY DO Ot O24.414 GESTATIONAL DIABETES IN , INSUL 06/23/2017 DARREN HARRY DO Ot Z3A.31 31 WEEKS GESTATION OF 06/28/2017 DARREN HARRY DO Ot O09.523 SUPERVISION OF ELDERLY MULTIGRAVIDA, THI 06/28/2017 DARREN HARRY DO Ot O24.414 GESTATIONAL DIABETES IN , INSUL 06/28/2017 DARREN HARRY DO Ot O09.523 SUPERVISION OF ELDERLY MULTIGRAVIDA, THI 06/28/2017 DARREN HARRY DO Ot O24.414 GESTATIONAL DIABETES IN , INSUL 06/28/2017 DARREN HARRY DO Ot O44.43 LOW LYING PLACENTA NOS OR WITHOUT HEMOR, 06/28/2017 DARREN HARRY DO Ot Z3A.34 34 WEEKS GESTATION OF 07/20/2017 DARREN HARRY DO Ot O09.523 SUPERVISION OF ELDERLY MULTIGRAVIDA, THI 07/20/2017 DARREN HARRY DO Ot O24.414 GESTATIONAL DIABETES IN , INSUL 07/20/2017 DARREN HARRY DO Ot O44.43 LOW LYING PLACENTA NOS OR WITHOUT HEMOR, 07/20/2017 DARREN HARRY DO Ot Z3A.34 34 WEEKS GESTATION OF 08/11/2017 DARREN HARRY DO Ot D62 ACUTE POSTHEMORRHAGIC ANEMIA 08/11/2017 DARREN HARRY DO Ot D69.6 THROMBOCYTOPENIA, UNSPECIFIED 08/11/2017 DARREN HARRY DO Ot O24.425 [facility] 08/11/2017 DARREN HARRY DO Ot O34.211 MATERN CARE FOR LOW TRANSVERSE SCAR FROM 08/11/2017 DARREN HARRY DO Ot O90.81 ANEMIA OF THE PUERPERIUM 08/11/2017 DARREN HARRY DO Ot O99.12 OTH DIS OF THE BLD/BLD-FORM ORG/IMMUN ME 08/11/2017 DARREN HARRY DO Ot O99.824 STREPTOCOCCUS B CARRIER STATE COMPLICATI 08/11/2017 DARREN HARRY DO Ot Z37.0 SINGLE LIVE 08/11/2017 DARREN HARRY DO Ot Z3A.38 38 WEEKS GESTATION OF 08/11/2017 DARREN HARRY DO Ot Z79.84 POWER WOOD SAWYER (CURRENT) USE OF ORAL HYPOGLYC Procedures Code Description Performed By Performed On 50E04R8 EXTRACTION OF POC, LOW CERVICAL, OPEN AP 08/08/2017 Results Test Result Range Complete blood count (CBC) with automated white blood cell (WBC) differential - 01/16/17 20:50 Blood leukocytes automated count (number/volume) 9.3 10*3/uL 4.3-11.0 Blood erythrocytes automated count (number/volume) 4.40 10*6/uL 4.35-5.85 Venous blood hemoglobin measurement (mass/volume) 14.1 g/dL 11.5-16.0 Blood hematocrit (volume fraction) 42 % 35-52 Automated erythrocyte mean corpuscular volume 94 [foz_us] 80-99 Automated erythrocyte mean corpuscular hemoglobin (mass per erythrocyte) 32 pg 25-34 Automated erythrocyte mean corpuscular hemoglobin concentration measurement ( mass/volume) 34 g/dL 32-36 Automated erythrocyte distribution width ratio 13.5 % 10.0-14.5 Automated blood platelet count (count/volume) 159 10*3/uL 130-400 Automated blood platelet mean volume measurement 11.0 [foz_us] 7.4-10.4 Automated blood neutrophils/100 leukocytes 65 % 42-75 Automated blood lymphocytes/100 leukocytes 27 % 12-44 Blood monocytes/100 leukocytes 6 % 0-12 Automated blood eosinophils/100 leukocytes 2 % 0-10 Automated blood basophils/100 leukocytes 0 % 0-10 Blood neutrophils automated count (number/volume) 6.1 10*3 1.8-7.8 Blood lymphocytes automated count (number/volume) 2.5 10*3 1.0-4.0 Blood monocytes automated count (number/volume) 0.6 10*3 0.0-1.0 Automated eosinophil count 0.2 10*3/uL 0.0-0.3 Automated blood basophil count (count/volume) 0.0 10*3/uL 0.0-0.1 Comprehensive metabolic panel - 01/16/17 20:50 Serum or plasma sodium measurement (moles/volume) 138 mmol/L 135-145 Serum or plasma potassium measurement (moles/volume) 3.5 mmol/L 3.6-5.0 Serum or plasma chloride measurement (moles/volume) 108 mmol/L 98-107 Carbon dioxide 19 mmol/L 21-32 Serum or plasma anion gap determination (moles/volume) 11 mmol/L 5-14 Serum or plasma urea nitrogen measurement (mass/volume) 9 mg/dL 7-18 Serum or plasma creatinine measurement (mass/volume) 0.78 mg/dL 0.60-1.30 Serum or plasma urea nitrogen/creatinine mass ratio 12 NRG Serum or plasma creatinine measurement with calculation of estimated glomerular filtration rate > NRG Serum or plasma glucose measurement (mass/volume) 140 mg/dL 70-105 Serum or plasma calcium measurement (mass/volume) 9.4 mg/dL 8.5-10.1 Serum or plasma total bilirubin measurement (mass/volume) 0.2 mg/dL 0.1-1.0 Serum or plasma alkaline phosphatase measurement (enzymatic activity/volume) 67 U/L 40-136 Serum or plasma aspartate aminotransferase measurement (enzymatic activity/ volume) 12 U/L 5-34 Serum or plasma alanine aminotransferase measurement (enzymatic activity/volume ) 17 U/L 0-55 Serum or plasma protein measurement (mass/volume) 6.5 g/dL 6.4-8.2 Serum or plasma albumin measurement (mass/volume) 3.7 g/dL 3.2-4.5 Complete blood count (CBC) with automated white blood cell (WBC) differential - 08/08/17 20:31 Blood leukocytes automated count (number/volume) 15.4 10*3/uL 4.3-11.0 Blood erythrocytes automated count (number/volume) 4.40 10*6/uL 4.35-5.85 Venous blood hemoglobin measurement (mass/volume) 13.3 g/dL 11.5-16.0 Blood hematocrit (volume fraction) 39 % 35-52 Automated erythrocyte mean corpuscular volume 89 [foz_us] 80-99 Automated erythrocyte mean corpuscular hemoglobin (mass per erythrocyte) 30 pg 25-34 Automated erythrocyte mean corpuscular hemoglobin concentration measurement ( mass/volume) 34 g/dL 32-36 Automated erythrocyte distribution width ratio 14.3 % 10.0-14.5 Automated blood platelet count (count/volume) 119 10*3/uL 130-400 Automated blood platelet mean volume measurement 12.5 [foz_us] 7.4-10.4 Automated blood neutrophils/100 leukocytes 87 % 42-75 Automated blood lymphocytes/100 leukocytes 10 % 12-44 Blood monocytes/100 leukocytes 4 % 0-12 Automated blood eosinophils/100 leukocytes 0 % 0-10 Automated blood basophils/100 leukocytes 0 % 0-10 Blood neutrophils automated count (number/volume) 13.3 10*3 1.8-7.8 Blood lymphocytes automated count (number/volume) 1.5 10*3 1.0-4.0 Blood monocytes automated count (number/volume) 0.6 10*3 0.0-1.0 Automated eosinophil count 0.0 10*3/uL 0.0-0.3 Automated blood basophil count (count/volume) 0.0 10*3/uL 0.0-0.1 Blood type T Indirect antibody screen panel - 08/08/17 20:31 ABO+Rh group AP NRG Transfusion band number [id number] NRG Blood group antibody screen NEGATIVE NRG Capillary blood glucose measurement by glucometer (mass/volume) - 08/08/17 20: 42 Capillary blood glucose measurement by glucometer (mass/volume) 103 mg/dL 70-110 Complete urinalysis with reflex to culture - 08/08/17 21:14 Urine color determination JARRED NRG Urine clarity determination CLEAR NRG Urine pH measurement by test strip 5 5-9 Specific gravity of urine by test strip 1.025 1.016- 1.022 Urine protein assay by test strip, semi-quantitative 1+ NEGATIVE Urine glucose detection by automated test strip NEGATIVE NEGATIVE Erythrocytes detection in urine sediment by light microscopy NEGATIVE NEGATIVE Urine ketones detection by automated test strip 3+ NEGATIVE Urine nitrite detection by test strip NEGATIVE NEGATIVE Urine total bilirubin detection by test strip NEGATIVE NEGATIVE Urine urobilinogen measurement by automated test strip (mass/volume) NORMAL NORMAL Urine leukocyte esterase detection by dipstick 1+ NEGATIVE Automated urine sediment erythrocyte count by microscopy (number/high power field) NONE NRG Automated urine sediment leukocyte count by microscopy (number/high power field ) [HPF] NRG Bacteria detection in urine sediment by light microscopy NONE NRG Squamous epithelial cells detection in urine sediment by light microscopy 5-10 NRG Crystals detection in urine sediment by light microscopy NONE NRG Casts detection in urine sediment by light microscopy NONE NRG Mucus detection in urine sediment by light microscopy MODERATE NRG Complete urinalysis with reflex to culture NO NRG Bacterial urine culture - 08/08/17 21:14 Bacterial urine culture NG NRG Complete blood count (CBC) with automated white blood cell (WBC) differential - 08/09/17 05:15 Blood leukocytes automated count (number/volume) 16.4 10*3/uL 4.3-11.0 Blood erythrocytes automated count (number/volume) 3.69 10*6/uL 4.35-5.85 Venous blood hemoglobin measurement (mass/volume) 11.2 g/dL 11.5-16.0 Blood hematocrit (volume fraction) 34 % 35-52 Automated erythrocyte mean corpuscular volume 91 [foz_us] 80-99 Automated erythrocyte mean corpuscular hemoglobin (mass per erythrocyte) 30 pg 25-34 Automated erythrocyte mean corpuscular hemoglobin concentration measurement ( mass/volume) 33 g/dL 32-36 Automated erythrocyte distribution width ratio 14.0 % 10.0-14.5 Automated blood platelet count (count/volume) 99 10*3/uL 130-400 Automated blood platelet mean volume measurement 12.5 [foz_us] 7.4-10.4 Automated blood neutrophils/100 leukocytes 83 % 42-75 Automated blood lymphocytes/100 leukocytes 12 % 12-44 Blood monocytes/100 leukocytes 5 % 0-12 Automated blood eosinophils/100 leukocytes 0 % 0-10 Automated blood basophils/100 leukocytes 0 % 0-10 Blood neutrophils automated count (number/volume) 13.6 10*3 1.8-7.8 Blood lymphocytes automated count (number/volume) 1.9 10*3 1.0-4.0 Blood monocytes automated count (number/volume) 0.8 10*3 0.0-1.0 Automated eosinophil count 0.0 10*3/uL 0.0-0.3 Automated blood basophil count (count/volume) 0.0 10*3/uL 0.0-0.1 Complete blood count (CBC) with automated white blood cell (WBC) differential - 08/10/17 06:56 Blood leukocytes automated count (number/volume) 12.4 10*3/uL 4.3-11.0 Blood erythrocytes automated count (number/volume) 3.52 10*6/uL 4.35-5.85 Venous blood hemoglobin measurement (mass/volume) 10.8 g/dL 11.5-16.0 Blood hematocrit (volume fraction) 33 % 35-52 Automated erythrocyte mean corpuscular volume 93 [foz_us] 80-99 Automated erythrocyte mean corpuscular hemoglobin (mass per erythrocyte) 31 pg 25-34 Automated erythrocyte mean corpuscular hemoglobin concentration measurement ( mass/volume) 33 g/dL 32-36 Automated erythrocyte distribution width ratio 14.6 % 10.0-14.5 Automated blood platelet count (count/volume) 109 10*3/uL 130-400 Automated blood platelet mean volume measurement 12.6 [foz_us] 7.4-10.4 Automated blood neutrophils/100 leukocytes 80 % 42-75 Automated blood lymphocytes/100 leukocytes 14 % 12-44 Blood monocytes/100 leukocytes 4 % 0-12 Automated blood eosinophils/100 leukocytes 1 % 0-10 Automated blood basophils/100 leukocytes 0 % 0-10 Blood neutrophils automated count (number/volume) 9.9 10*3 1.8-7.8 Blood lymphocytes automated count (number/volume) 1.8 10*3 1.0-4.0 Blood monocytes automated count (number/volume) 0.5 10*3 0.0-1.0 Automated eosinophil count 0.1 10*3/uL 0.0-0.3 Automated blood basophil count (count/volume) 0.0 10*3/uL 0.0-0.1 Encounters ACCT No. Visit Date/Time Discharge Status Pt. Type Provider Facility Loc./Unit Complaint [id number] 08/08/2017 20:07:00 08/11/2017 12:15:00 DIS Outpatient DARREN HARRY DO [facility] LDRP REPEAT CSECTION [id number] 08/09/2017 08:00:00 08/09/2017 23:59:59 CLS Preadmit DARREN HARRY DO PREVIOUS [id number] 08/03/2017 09:26:00 08/03/2017 09:57:00 DIS Outpatient DARREN HARRY DO [facility] PREOP [id number] 08/01/2017 09:48:00 08/01/2017 23:59:59 CLS Outpatient PIERO DEE DARREN C [facility] RAD LOW LYING PLACENTA NOS W/ O HEMORRHAGE O44.43 [id number] 07/18/2017 10:46:00 07/18/2017 23:59:59 CLS Outpatient PIERO DEE DARREN Gely [facility] RAD LOW LYING PLACENTA NOS W/ O HEMORRHAGE O44.43 [id number] 06/07/2017 11:52:00 06/07/2017 23:59:59 CLS Outpatient HARRYEufemia DEE DARREN C [facility] RAD O24.414 [id number] 04/04/2017 09:34:00 04/04/2017 23:59:59 CLS Outpatient HARRYEufemia DEE DARREN C [facility] RAD O09.522 ENCOUNTER FOR SUPERVISON JUVE MARROQUIN [id number] 01/16/2017 20:05:00 01/16/2017 21:28:00 DIS Emergency STEPHAYN HOLLEY MD [facility] ER VAG BLEED 9 WKS PG [id number] 07/10/2013 14:03:00 07/10/2013 23:59:59 CLS Outpatient CALVIN AVILA [facility] RAD IRREGULARITY U/L OUTER QUAD [id number] 08/12/2017 18:41:00 ACT Emergency MANSI BENITEZ MD [facility] ER INCISION CAME OPEN [id number] 11/04/2010 19:54:00 Document Registration
[2017-08-12 19:11] VITALS: BP 161/84
--- NOTE | 2017-08-12 19:37 | ED Integumentary General ---
General Chief Complaint: Skin/Wound Problems Stated Complaint: INCISION CAME OPEN Nursing Triage Note: PT STATES SHE HAD A CSECTION ON TUESDAY NOC, HAS HAD BLEEDING FROM HER INCISION IN THE LAST HOUR. JOANNA ANY PAIN. Source: patient Exam Limitations: no limitations History of Present Illness Time seen by provider: 19:34 Initial Comments To ER with reports of coming open. Patient had a done on Tuesday the of this week by Dr. Harry. Today she noticed some bloody appearing drainage from the right side of her incision. She has no pain or redness. No fevers or chills. Timing/Duration: just prior to arrival Severity: moderate Associated Symptoms: denies symptoms Allergies and Home Medications Allergies Coded Allergies: No Known Drug Allergies (Unverified , 08/03/17) Home Medications Docusate Sodium 100 Mg Capsule, 100 MG PO BID, #60 Prescribed by: DARREN HARRY on 08/11/17 1052 Ibuprofen 600 Mg Tablet, 600 MG PO Q6H, #60 Prescribed by: DARREN HARRY on 08/11/17 1052 Metformin HCl 1,000 Mg Tablet, 1,000 MG PO BID, (Reported) Pnv No.122/Iron/Folic Acid 1 Each Tablet, 1 EACH PO DAILY, (Reported) [Hydrocodone Bit/Acetaminophen] Y TAB, 1-2 TAB PO Q4H PRN for PAIN-MODERATE, #45 Prescribed by: DARREN HARRY on 08/11/17 1052 Constitutional: see HPI, No chills EENTM: see HPI Respiratory: no symptoms reported Cardiovascular: no symptoms reported Genitourinary: no symptoms reported Musculoskeletal: no symptoms reported Skin: see HPI Past Oruiuyd-Onxnga-Kyvcle Hx Patient Social History Alcohol Use: Denies Use Recreational Drug Use: No Smoking Status: Current Everyday Smoker Type Used: Cigarettes Recent Foreign Travel: No Contact w/Someone Who Travel: No Recent Infectious Disease Expo: No Recent Hopitalizations: No Physical Abuse: No Sexual Abuse: No Mistreated: No Fear: No Immunizations Up To Date Tetanus Booster (TDap): Unknown PED Vaccines UTD: Yes Seasonal Allergies Seasonal Allergies: Yes Surgeries History of Surgeries: Yes (2010) Surgeries: Section Respiratory History of Respiratory Disorde: No Cardiovascular History of Cardiac Disorders: No Neurological History of Neurological Disord: No Reproductive System Hx Reproductive Disorders: No Sexually Transmitted Disease: No HIV/AIDS: No Female Reproductive Disorders: Denies Genitourinary History of Genitourinary Disor: No Gastrointestinal History of Gastrointestinal Di: Yes Gastrointestinal Disorders: Gastroesophageal Reflux Musculoskeletal History of Musculoskeletal Dis: No Endocrine History of Endocrine Disorders: Yes (GESTATIONAL ) HEENT History of HEENT Disorders: No Loss of Vision: Bilateral Hearing Impairment: Denies Cancer History of Cancer: No Psychosocial History of Psychiatric Problem: No Suicide Risk Score: 0 Integumentary History of Skin or Integumenta: No Blood Transfusions History of Blood Disorders: No Adverse Reaction to a Blood Tr: No Family Medical History Significant Family History: No Pertinent Family Hx Family Medial History: Diabetes mellitus 19 MOTHER FH: cancer 19 FATHER FH: stroke 19 FATHER Myocardial infarction 19 MOTHER Physical Exam Vital Signs Vital Sign - Last 12Hours 08/12/17 19:11 Temp 100.2 Pulse 74 Resp 16 B/P (MAP) 161/84 (109) Capillary Refill : Less Than 3 Seconds General Appearance: WD/WN, no apparent distress HEENT: PERRL/EOMI, normal ENT inspection Neck: non-tender, full range of motion Respiratory: no respiratory distress, no accessory muscle use Gastrointestinal: non tender, soft Neurologic/Psychiatric: alert, normal mood/affect, oriented x 3 Skin: normal color, warm/dry, other (suprapubic and a steel incision. The right side of this incision there is minor wound D his symptoms. Drainage of serosanguineous fluid. The wound edges are gaping by only about 2 mm. This was reinforced with Steri-Strips and gauze.) Progress/Results/Core Measures Results/Orders Vital Signs/I&O Vital Sign - Last 12Hours 08/12/17 19:11 Temp 100.2 Pulse 74 Resp 16 B/P (MAP) 161/84 (109) Blood Pressure Mean: 109 Departure Impression Impression: Primary Impression: minor postoperative wound dehiscence Disposition: 01 HOME, SELF-CARE Condition: Stable Departure-Patient Inst. Decision time for Depature: 19:36 Referrals: DARREN HARRY DO (PCP/Family) Primary Care Physician Patient Instructions: Wound Care (DC) Add. Discharge Instructions: 1. Use the gauze to collect any drainage. You will notice over the next few days that this drainage becomes less bloody and more clear/yellowish appearing. Return to ER for any redness, pain around the incisionAll discharge instructions reviewed with patient and/or family. Voiced understanding. JACINTA VILLASEONR CEMENT HANDLER Aug 12, 2017 19:37
== END ==
LOC: EDUNIT# 18:39 → ER 18:41
DX: O90.0 Disruption of cesarean delivery wound (principal); O99.63 Diseases of the digestive system complicating the puerperium; K21.9 Gastro-esophageal reflux disease without esophagitis; O99.335 Smoking (tobacco) complicating the puerperium; F17.210 Nicotine dependence, cigarettes, uncomplicated; Z79.84 Long term (current) use of oral hypoglycemic drugs
CPT/HCPCS: 99282

== ENCOUNTER → 2018-10-12 | Outpatient (CLI) | payer BC ==
[~2018-10-12] MED LIST changes: +METF-399 PO; -METF1000 PO
== END ==
LOC: CARD 10:16
PROVIDERS: ATTEND Internal Medicine Cardiovascular Disease
DX: I73.9 Peripheral vascular disease, unspecified (principal); N93.8 Other specified abnormal uterine and vaginal bleeding; E66.9 Obesity, unspecified; Z72.0 Tobacco use
CPT/HCPCS: 93306

== ENCOUNTER → 2018-10-18 | Day surgery (SDC) | payer BC ==
[2018-10-18] VITALS (10 sets, daily range): BP systolic 118–161; BP diastolic 61–94
[~2018-10-18] VITALS: Ht 162.6 cm; Wt 106.6 kg
[~2018-10-18] MED LIST changes: +ASPI-983 PO; +ATOR10TA PO; +FLU QUADRIvalent (5+ YOA) 2018-2019 (AFLURIA) 0.5 ML IM ONE; +HEParin 1000 UNIT/ML (10ML VIAL) FOR BOLUS ONE; +IOHEXOL 350 MG/ML 150 ML (OMNIPAQUE 350) VIAL IV ONE; +LIDOCAINE 1% INJ 20 ML 20 ML VIAL ONE; +MIDAZOLAM 5 MG/5 ML (VERSED) VIAL ONE; +NITRO DRIP 25000 MCG/D5W 250 ML IV ONE; +NS 100 ML (IVPB) BAG IV ONE; +NS IV 1000 ML 1,000 ML IV SCH; +NS IV 1000 ML 3,000 ML ONE; +PATIENT MAY USE OWN MEDS, ALL PO SCH; +RECEIVED CONTRAST (Hold Metformin) IV SCH; +VARE0.5T PO; +VERAPAMIL 5 MG/2 ML (CALAN) VIAL IV ONE; +fentaNYL INJECTION 100 MCG/2 ML AMP ONE
[2018-10-18 07:29] LABS: MEAN PLATELET VOLUME 11.7 FL (7.4-10.4); RED CELL DISTRIBUTION WIDTH 14.6 % (10.0-14.5); WHITE BLOOD COUNT 8.7 10^3/uL (4.3-11.0)
[2018-10-18 07:31] LABS: BILIRUBIN,URINE NEGATIVE (NEGATIVE); CLARITY,URINE CLEAR; COLOR,URINE AMBER; GLUCOSE, URINE (UA) NEGATIVE (NEGATIVE); KETONES,URINE 1+ (NEGATIVE); LEUKOCYTE ESTERASE ,URINE 1+ (NEGATIVE); NITRITE,URINE POSITIVE (NEGATIVE); PH,URINE 5 (5-9); PROTEIN,URINE 2+ (NEGATIVE); UROBILINOGEN,URINE NORMAL (NORMAL)
--- NOTE | 2018-10-18 07:37 | Diagnostic Imaging Report ---
INDICATION: Hypertension, preop for heart catheter. COMPARISON: None. FINDINGS: Single view of the chest demonstrates clear lungs bilaterally. The heart is normal. There is no pneumothorax. The osseous structures normal. IMPRESSION: Negative chest. Dictated by: Dictated on workstation # [id number]
[2018-10-18 07:40] LABS: PROTHROMBIN TIME PATIENT 12.9 SEC (12.2-14.7)
[2018-10-18 07:48] LABS: ALANINE AMINOTRANSFERASE 21 U/L (0-55); ALBUMIN 4.1 GM/DL (3.2-4.5); ALKALINE PHOSPHATASE 102 U/L (40-136); BILIRUBIN,TOTAL 0.5 MG/DL (0.1-1.0); BUN/CREATININE RATIO 7; CALCIUM 9.4 MG/DL (8.5-10.1); CARBON DIOXIDE 22 MMOL/L (21-32); CHLORIDE 107 MMOL/L (98-107); CHOLESTEROL 197 MG/DL (< 200); CREATININE SERUM 0.74 MG/DL (0.60-1.30); GFR ESTIMATED > 60; GLUCOSE 99 MG/DL (70-105); HDL CHOLESTEROL 48 MG/DL (40-60); POTASSIUM 4.1 MMOL/L (3.6-5.0); SODIUM 138 MMOL/L (135-145); TOTAL PROTEIN 6.7 GM/DL (6.4-8.2); TRIGLYCERIDES 122 MG/DL (<150); VLDL CHOLESTEROL 24 MG/DL (5-40)
[2018-10-18 07:51] LABS: BACTERIA,URINE TRACE /HPF
--- NOTE | 2018-10-18 09:11 | Cardiac Procedure Note-CS/ASA ---
Pre-Procedure Note Pre-Op Procedure Note H&P Reviewed The H&P was reviewed, patient examined and no changes noted. Date H&P Reviewed: Oct 18, 2018 Time H&P Reviewed: 09:11 Conscious Sedation Pre-Proced Time 09:11 ASA Score 3 For ASA 3 and 4: Consider anesthesia and medical clearance. Also, for patients with a history of failed moderate sedation consider anesthesia. Airway Lungs Heart ASA score ASA 1: a normal healthy patient ASA 2: a patient with a mild systemic disease (mid diabetes, controlled hypertension, obesity x ASA 3: a patient with a severe systemic disease that limits activity (angina , COPD, prior Myocardial infarction) ASA 4: a patient with an incapacitating disease that is a constant threat to life (CHF, renal failure) ASA 5: a moribund patient not expected to survive 24 hrs. (ruptured aneurysm) ASA 6: a declared brain- patient whose organs are being harvested. For emergent operations, add the letter E after the classification Mallampati Classification Grade 3 Sedation Plan Analgesia, Amnesia, Plan communicated to team members, Discussed options with patient/fam, Discussed risks with patient/fam The patient is an appropriate candidate to undergo the planned procedure, sedation, and anesthesia. The patient immediately re-assessed prior to indication. ZANDER CHAUDHARY MD Oct 18, 2018 09:11
--- NOTE | 2018-10-18 13:15 | Diagnostic Imaging Report ---
INDICATION: Aortic occlusion noted on recent aortogram. The study is performed for further characterization. Axial imaging through the chest, abdomen and pelvis and bilateral lower cavities was performed after the administration of intravenous contrast utilizing the CT angiography protocol. Multiplanar, 3-D MIP reformations were also performed. CT Chest: The thoracic aorta is normal caliber. No dissection is seen. Central pulmonary arteries are unremarkable. No pericardial or pleural fluid is detected. No pulmonary infiltrates, nodules or masses are seen. No axillary, hilar or mediastinal lymphadenopathy is detected. IMPRESSION: Unremarkable CT angiogram of the chest. CT angiogram abdomen and pelvis with bilateral lower extremities: Liver demonstrates a generalized low density suggestive of hepatic steatosis. There is an ill-defined region of low-density in the right lobe near the dome, indeterminate measuring 2 cm. A followup would be recommended. Gallbladder is unremarkable. No biliary ductal dilatation is seen. Pancreas shows fatty atrophy. Spleen is unremarkable. No adrenal mass is detected. Kidneys are unremarkable. Aorta is normal in caliber. At the level of the lower pole of the kidneys, there appears to be a large amount of plaque with focal high-grade stenosis of the aorta. Contrast does appear to pass through the stenosis. This is just proximal to the bifurcation. No complete occlusion is identified. Both common iliac and external iliac arteries appear to be widely patent. No periaortic fluid collection is seen. Bowel loops are normal caliber. No free fluid is seen. Bladder is unremarkable. Uterus and ovaries are unremarkable apart from a small cyst involving the right ovary measuring 16 mm. Imaging through the lower extremities does show bilateral common femoral arteries to be patent. Bilateral superficial femoral and popliteal arteries are patent. The trifurcation vessels are unremarkable. There appears to be three-vessel runoff to the ankles bilaterally. IMPRESSION: Findings consistent with a high-grade infrarenal aortic stenosis without evidence of complete occlusion. Runoff vessels are unremarkable. There appears to be three-vessel runoff to the ankles bilaterally. Dictated by: Dictated on workstation # [id number]
--- NOTE | 2018-10-18 13:54 | Discharge Inst-Post CATH ---
Discharge Inst-CATH/EP Post Cardiac Cath/EP D/C Inst Follow Up/Plan Appointment with Dr. cox on October 24 at [address] Lugo's office in 2-4 weeks CARDIAC CATH DISCHARGE INSTRUCTIONS *Hold Metformin for 48 hours post heart cath. ACTIVITY * Go Home directly and rest. * Limit activity of the leg (or wrist if it was used) for 7 days including aerobics, swimming, jogging, bicycling, etc. * Restrict stair-climbing for 7 days if possible, if not, climb up with your non -cath leg, then bring together on the same step. * Avoid lifting, pushing, pulling or excessive movement of the affected extremity for 7 days. * Customary sexual activity may be resumed after 2 days-use caution not to use a position that strains or causes pain to the affected extremity. * No driving for 24 hours. * NO SMOKING. * Avoid straining for bowel movements for 7 days. * Gentle walking on level ground is allowed. * Returning to work will depend on the type of procedure and the results. Your doctor will discuss this with you. CALL YOUR DOCTOR FOR ANY OF THE FOLLOWING: *If bleeding from the puncture site occurs- Apply gentle pressure to site with clean cloth and call your doctor or EMS. * If a knot or lump forms under the skin, increases in size, or causes pain. * If bruising appears to be worsening or moving further down your leg instead of disappearing. * Temperature above 101 F. CARE OF YOUR GROIN INCISION; * Bruising or purple discoloration of the skin near the puncture site is common. * You may shower only, no bathtub bathing for 5 days. Be careful to avoid slipping as your leg may feel stiff. * If a closure device was used on your femoral artery, please see the attached guide regarding care of the device and your leg. * Leave the dressing on, until removed by office staff. CARE OF YOUR WRIST INCISION; * Bruising or purple discoloration of the skin near the puncture site is common. * You may shower. * DO NOT submerge wrist. * Leave dressing on, until removed by office staff.. ZANDER LUGO MD Oct 18, 2018 13:54
--- NOTE | 2018-10-18 13:59 | Peripheral Report ---
Peripheral Report Physician (s)/Waredresser (s) Physician ZANDER CHAUDHARY MD Pre-Procedure Diagnosis Pre-Procedure Diagnosis: peripheral arterial disease, nonhealing foot ulcer Post-Procedure Note Procedure Start Date: Oct 18, 2018 Name of Procedure: Abdominal aortogram with evaluation of the bifurcation Right leg runoff Findings/Procedure Note PROCEDURE NOTE: 43-year-old lady with history of toe ulcer that is nonhealing, had an abnormal SOFÍA bilaterally with poor TBI. She was scheduled for peripheral angiogram possible and to plasty and stenting After explaining the procedure to the patient, all pros and cons were explained , all questions were answered. The patient signed the consent and then she was placed on the cardiac catheterization laboratory. The patient was placed on the cardiac catheterization laboratory. Groin was prepped SL fashion local anesthesia was used. Sheath placed in the right femoral artery, runoff to the right lower extremity was done. I was unable to advance the J-wire beyond the abdominal aorta at the lower portion. I removed the rim catheter and used straight catheter without ability to advance subsequently I did angiogram after placing the straight catheter at the area of occlusion in the lower abdominal aorta and angiogram was done at that point I decided to attempt to do radial access. I was able to access the right radial artery and the sheath was placed, I did not have a good blood return through that sheath subsequently I removed the sheath and manual pressure applied then removed the right femoral sheath and manual pressure applied. I scheduled the patient for CT angiogram which showed subtotal occlusion of the abdominal aorta just above the bifurcation. FINDINGS: Abdominal aortogram: Subtotal occlusion just above the bifurcation with good flow in both iliac arteries, I was unable to advance the catheter or the wire above the occlusion Right leg runoff: Slow flow but mild disease nonobstructive disease down to the foot. Smaller arteries. CONCLUSIONS: Subtotal occlusion of the abdominal aorta just above the bifurcation, confirmed by CT angiogram DISCUSSION AND RECOMMENDATIONS: I discussed the management plan with Dr. cox and arrangement were made for evaluation early next week, patient probably will require aortic stent Anesthesia Type: Conscious Sedation Estimated blood loss (mL): 25 ml Contrast Amount: 18 ml Total Radiation Dose: 168 mGy Post-Procedure Diagnosis Post-operative diagnosis: Peripheral arterial disease Nonhealing foot ulcer Tobaccoism Hyperlipidemia ZANDER CHAUDHARY MD Oct 18, 2018 13:59
--- NOTE | 2018-10-18 14:04 | NUR ---
SPOKE WITH ELLEN AT DR. BILLY OFFICE TO INFORM DR CHAUDHARY SPOKE WITH HIM AND WANTS TO SEE PATIENT WEDNESDAY OCTOBER 24, 2018 AT 1500. ELLEN INFORMED THIS RN TO HAVE PATIENT BRING DISC WITH THEM TO APPOINTMENT.
== END | disposition home or self-care (01) ==
LOC: CATH 06:57 → SDC 10:58
PROVIDERS: ATTEND Internal Medicine Cardiovascular Disease
DX: I73.9 Peripheral vascular disease, unspecified (principal); L97.529 Non-pressure chronic ulcer of other part of left foot with unspecified severity; E78.5 Hyperlipidemia, unspecified; F17.210 Nicotine dependence, cigarettes, uncomplicated; R94.31 Abnormal electrocardiogram [ECG] [EKG]; Z82.49 Family history of ischemic heart disease and other diseases of the circulatory system
CPT/HCPCS: 36415; 71045; 75625; 75635; 80053; 80061; 81000; 84703; 85027; 85610; 85730; 87081

== ENCOUNTER → 2019-04-03 | Outpatient (CLI) | payer BC, OTHER ==
[~2019-04-03] MED LIST changes: -FLU QUADRIvalent (5+ YOA) 2018-2019 (AFLURIA) 0.5 ML IM ONE; -HEParin 1000 UNIT/ML (10ML VIAL) FOR BOLUS ONE; -IOHEXOL 350 MG/ML 150 ML (OMNIPAQUE 350) VIAL IV ONE; -LIDOCAINE 1% INJ 20 ML 20 ML VIAL ONE; -MIDAZOLAM 5 MG/5 ML (VERSED) VIAL ONE; -NITRO DRIP 25000 MCG/D5W 250 ML IV ONE; -NS 100 ML (IVPB) BAG IV ONE; -NS IV 1000 ML 1,000 ML IV SCH; -NS IV 1000 ML 3,000 ML ONE; -PATIENT MAY USE OWN MEDS, ALL PO SCH; -RECEIVED CONTRAST (Hold Metformin) IV SCH; -VERAPAMIL 5 MG/2 ML (CALAN) VIAL IV ONE; -fentaNYL INJECTION 100 MCG/2 ML AMP ONE
--- NOTE | 2019-04-03 15:04 | Diagnostic Imaging Report ---
INDICATION: Routine screening. COMPARISON: 07/10/2013. TECHNIQUE: 2D and 3D bilateral screening mammography was performed with CAD. FINDINGS: Both breasts are heterogeneously dense, limiting the sensitivity of mammography. No dominant mass or malignant appearing microcalcifications are seen. The axillae are unremarkable. IMPRESSION: No mammographic features suspicious for malignancy are identified. ACR BI-RADS Category 1: Negative. Result letter will be mailed to the patient. Note: At least 10% of breast cancer is not imaged by mammography. Dictated by: Dictated on workstation # [id number]
== END ==
LOC: RAD 13:12
PROVIDERS: ATTEND Obstetrics & Gynecology
DX: Z12.31 Encounter for screening mammogram for malignant neoplasm of breast (principal)
CPT/HCPCS: 77067